=== PATIENT | male | born 1990 | race Caucasian/White ===

== ENCOUNTER 2019-09-18 07:49 | Emergency (ER) | payer BC ==
--- NOTE | 2019-09-18 08:48 | UC ---
General HPI - HPI Summary HPI Summary: States he has had a sore throat for past 5 days. 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 No fever. No cough. Mild congestion. No N/V/D. Good PO. Is taking advil as needed Meds: reviewed - History of Current Complaint Chief Complaint: UCGeneralIllness Stated Complaint: SORE THROAT Time Seen by Provider: 09/18/19 08:06 Pain Intensity: 5 - Allergy/Home Medications Allergies/Adverse Reactions: Allergies Allergy/AdvReac Type Severity Reaction Status Date / Time No Known Allergies Allergy Verified 09/18/19 08:01 Home Medications: Home Medications NK [No Home Medications Reported] 09/18/19 [History Confirmed 09/18/19] PMH/Surg Hx/FS Hx/Imm Hx Previously Healthy: Yes - Surgical History Surgical History: Yes Surgery Procedure, Year, and Place: Right thumb - Social History Alcohol Use: Occasionally Substance Use Type: None Smoking Status (MU): Never Smoked Tobacco Review of Systems All Other Systems Reviewed And Are Negative: Yes ENT: Positive: Sore Throat Physical Exam Triage Information Reviewed: Yes Appearance: Well-Appearing Vital Signs: Initial Vital Signs Temp 96.7 F 09/18/19 07:57 Pulse 83 09/18/19 07:57 Resp 18 09/18/19 07:57 BP 125/89 09/18/19 07:57 Pulse Ox 99 09/18/19 07:57 Vital Signs Reviewed: Yes ENT: Positive: Pharyngeal erythema, TMs normal Neck: Positive: Supple, Nontender Respiratory: Positive: Lungs clear, Normal breath sounds Cardiovascular: Positive: RRR, No Murmur Course/Dx - Course Course Of Treatment: This is a 28 yr old with a sore throat Rapid strep negative Nontoxic appearing Plan Continue supportive care Rapid strep test is negative Continue fluids - and continue ibuprofen as needed as directed for pain/fever Can try warm salt water rinses as needed for pain If symptoms persist or worsen, recommend follow up with PCP or return to urgent care - Diagnoses Provider Diagnosis: Viral pharyngitis Discharge ED - Sign-Out/Discharge Documenting (check all that apply): Patient Departure All imaging exams completed and their final reports reviewed: No Studies - Discharge Plan Condition: Good Disposition: HOME Patient Education Materials: Pharyngitis (ED) Referrals: Alirio Lowry MD [Medical Doctor] - No Primary Care KIKE Burrows [Primary Care Provider] - Additional Instructions: Continue supportive care Rapid strep test is negative Continue fluids - and continue ibuprofen as needed as directed for pain/fever Can try warm salt water rinses as needed for pain If symptoms persist or worsen, recommend follow up with PCP or return to urgent care - Billing Disposition and Condition Condition: GOOD Disposition: Home
== END 2019-09-18 08:56 | disposition home or self-care (01) ==
LOC: UCEAST 07:49
DX: J02.9 Acute pharyngitis, unspecified (principal)
CPT/HCPCS: 87651; 99201; G0463